=== PATIENT | male | born 1995 | race Caucasian/White ===

== ENCOUNTER 2017-01-06 13:19 | Emergency (ER) | payer SELFPAY ==
--- NOTE | 2017-01-06 13:34 | ER Document Report ---
ED Medical Screen (RME) - General Stated Complaint: FACE NUMBNESS Notes: 21 yo male c/o left facial numbness and weakness x 1 week. no fever. mild nausea. + facial weakness, equal motor strength upper and lower - Related Data Allergies/Adverse Reactions: No Known Allergies Allergy (Verified 07/25/14 23:29) Past Medical History Psychiatric Medical History: Reports: Hx Anxiety Past Surgical History: Reports: Hx Inguinal Hernia - Immunizations Hx Diphtheria, Pertussis, Tetanus Vaccination: Yes
--- NOTE | 2017-01-06 15:29 | ER Document Report ---
ED General - General Chief Complaint: Numbness of Face Stated Complaint: FACE NUMBNESS Mode of Arrival: Ambulatory Information source: Patient Notes: Patient is a 21 yo white male who no past medical history who reports 1 week history of left sided facial numbness and lack of movement. Endorses associated inability to close his left eye. He states today it felt worse because he was unable to taste his lunch. He has not tried any medication for this. He denies any fever, chills, unilateral weakness of extremities, headache, blurred vision , paresthesias, difficulty swallowing, difficulty with ambulation or slurred speech. He denies being under any stress lately. TRAVEL OUTSIDE OF THE [place] IN LAST 30 DAYS: No - Related Data Allergies/Adverse Reactions: No Known Allergies Allergy (Verified 01/06/17 13:32) Past Medical History - Social History Smoking Status: Never Smoker Chew tobacco use (# tins/day): No Frequency of alcohol use: Social Drug Abuse: Marijuana Family History: Reviewed & Not Pertinent Patient has suicidal ideation: No Patient has homicidal ideation: No Renal/ Medical History: Denies: Hx Peritoneal Dialysis Psychiatric Medical History: Reports: Hx Anxiety Past Surgical History: Reports: Hx Inguinal Hernia - Immunizations Hx Diphtheria, Pertussis, Tetanus Vaccination: Yes Review of Systems - Review of Systems Constitutional: No symptoms reported EENT: No symptoms reported Cardiovascular: No symptoms reported Respiratory: No symptoms reported Gastrointestinal: No symptoms reported Genitourinary: No symptoms reported Male Genitourinary: No symptoms reported Musculoskeletal: No symptoms reported Skin: No symptoms reported Hematologic/Lymphatic: No symptoms reported Neurological/Psychological: See HPI Physical Exam - Vital signs Vitals: Temp Pulse Resp BP Pulse Ox 97.9 F 80 16 155/65 H 98 01/06/17 13:32 01/06/17 13:32 01/06/17 13:32 01/06/17 13:32 01/06/17 13:32 Interpretation: Hypertensive - Notes Notes: PHYSICAL EXAM: CONSTITUTIONAL: Alert and oriented, well-appearing and in no acute distress. HENT: Normocephalic, atraumatic. Trachea midline. Uvula midline. Moist mucous membranes. EYES: Pupils equal round and reactive to light, EOM intact. Sclera anicteric, conjunctiva are normal. No entrapment. HEART: Regular rate and rhythm without murmurs. LUNGS: CTAB and equal. No wheezes, rales or rhonchi. EXTREMITIES: Normal range of motion, no pitting edema. No cyanosis. Cap Refill < 3 seconds. NEURO: Left side facial weakness extending from forehead to chin with slight droop, loss of forehead folds and unable to completely close eyelid. Repairer Helper strength equal and intact. Strength 5/5 in all extremities. No slurred speech, no pronator drift. PSYCH: Normal mood, normal affect. SKIN: Warm and dry. Normal turgor. No rashes or lesions noted. Course - Re-evaluation Re-evalutation: 01/06/17 15:29 Patient seen and examined. No slurred speech, no headache, no pronator drift, no unilateral extremity weakness. Exam consistent with Marquez's palsy. Based on exam and history, low suspicion for stroke and therefore will refrain from any imaging at this point. Will give course of oral steroids, eye patch for opthalmic protection and advised visine tears for lubrication. Advised patient to follow-up with primary care doctor. Given strict return precautions, discharged home in stable condition. - Vital Signs Vital signs: Temp Pulse Resp BP Pulse Ox 97.9 F 80 16 155/65 H 98 01/06/17 13:32 01/06/17 13:32 01/06/17 13:32 01/06/17 13:32 01/06/17 13:32 Discharge - Discharge Clinical Impression: Marquez's palsy Condition: Stable Disposition: HOME, SELF-CARE Instructions: Marquez's Palsy ([facility]), Steroid Medication Additional Instructions: It may take several weeks until your face is completely healed. You should continue to wear the eye patch while at home and while driving, we would recommend wearing eye protection until you can close your eyelids. To help keep your eye moist and prevent dryness, you should use visine tears. begin taking the steroid medication tomorrow as you were given today's dose here. Prescriptions: Prednisone [Deltasone 20 mg Tablet] 3 tab PO DAILY 7 Days Forms: Elevated Blood Pressure Referrals: RUT CAVANAUGH MD [Primary Care Provider] - Follow up in 1 week
[2017-01-06] MEDS ORDERED: PREDNISONE 20 MG TABLET PO ONE (15:31)
[2017-01-06 15:59] VITALS: BP 154/74
== END 2017-01-06 16:21 | disposition home or self-care (01) ==
LOC: ER 13:19
DX: G51.0 Bell's palsy (principal)
CPT/HCPCS: 99283; J7512

== ENCOUNTER 2018-08-25 22:53 | Emergency (ER) | payer SELFPAY ==
[2018-08-26] MEDS ORDERED: BUPRENORPHINE HCL 2 MG SUBLINGUAL TABLET SL ONE (00:17)
--- NOTE | 2018-08-26 00:22 | ER Document Report ---
ED General - General Chief Complaint: Possible Overdose Stated Complaint: POSSIBLE DRUG OVERDOSE Time Seen by Provider: 08/25/18 23:28 Notes: Patient is a 22-year-old male with a past medical history of polysubstance abuse who presents after family is worried that he may have accidentally overdosed on benzodiazepines and opiates. The patient states that he took Xanax , Percocet and injected heroin today. He states this was an attempt to get high. Denies any self-harm intention. Has a 3-4-year history of heroin abuse. Has had multiple overdoses in the past. The patient at no point today became apneic or lost consciousness. Family states that they want him to come to the hospital today because he was falling asleep while eating dinner. Patient states that he is interested in getting clean. He denies any acute medical concerns. He states the longest he has gone without using has been 5 months. States that prior to today he had approximately 1-2 weeks clean. Denies any current suicidal or homicidal ideation. Nothing improves or worsens his symptoms. TRAVEL OUTSIDE OF THE [place] IN LAST 30 DAYS: No - Related Data Allergies/Adverse Reactions: No Known Allergies Allergy (Verified 01/06/17 13:32) Past Medical History - General Information source: Patient - Social History Smoking Status: Former Smoker Frequency of alcohol use: None Drug Abuse: Heroin, Marijuana, Prescription drugs Lives with: Family Family History: Reviewed & Not Pertinent Patient has suicidal ideation: No Patient has homicidal ideation: No Renal/ Medical History: Denies: Hx Peritoneal Dialysis Psychiatric Medical History: Reports: Hx Anxiety, Hx Depression Past Surgical History: Reports: Hx Inguinal Hernia - Immunizations Hx Diphtheria, Pertussis, Tetanus Vaccination: Yes Review of Systems - Review of Systems Notes: Constitutional: Negative for fever. HENT: Negative for sore throat. Eyes: Negative for visual changes. Cardiovascular: Negative for chest pain. Respiratory: Negative for shortness of breath. Gastrointestinal: Negative for abdominal pain, vomiting or diarrhea. Genitourinary: Negative for dysuria. Musculoskeletal: Negative for back pain. Skin: Negative for rash. Neurological: Negative for headaches, weakness or numbness. 10 point ROS negative except as marked above and in HPI. Physical Exam - Vital signs Vitals: Temp Pulse Resp BP Pulse Ox 98.5 F 90 16 112/63 97 08/25/18 23:06 08/25/18 23:06 08/25/18 23:06 08/25/18 23:06 08/25/18 23:06 Interpretation: Normal Notes: PHYSICAL EXAMINATION: GENERAL: Well-appearing, well-nourished and in no acute distress. HEAD: Atraumatic, normocephalic. EYES: Pupils equal round and reactive to light, extraocular movements intact, sclera anicteric, conjunctiva are normal. ENT: nares patent, oropharynx clear without exudates. Moderately dry mucous membranes. NECK: Normal range of motion, supple without lymphadenopathy LUNGS: Breath sounds clear to auscultation bilaterally and equal. No wheezes rales or rhonchi. HEART: Regular rate and rhythm without murmurs ABDOMEN: Soft, nontender, normoactive bowel sounds. No guarding, no rebound. No masses appreciated. EXTREMITIES: Normal range of motion, no pitting or edema. No cyanosis. NEUROLOGICAL: No focal neurological deficits. Moves all extremities spontaneously and on command. PSYCH: Minimally lethargic, oriented, responds appropriately to questions SKIN: Warm, Dry, normal turgor, no rashes or lesions noted. Course - Re-evaluation Re-evalutation: 08/26/18 00:21 Patient presents after an acute opiate overdose, although did not require opiate reversal with naloxone. Patient presents nontoxic in appearance, in no distress, admits to ongoing opiate abuse. I had an extensive conversation with the patient about the dangers opiate abuse, have emphasized that they are never going to be certain what they are self administering particularly given the high rates of fentanyl in our community. Rehab resources have been offered. No indication for labs or imaging. Patient has been sent home with a 2-day supply of Suboxone. It has been given to the custody of a member at the bedside to be administered to the patient. Patient has remained awake, alert, oriented without any evidence of somnolence, hypoventilation or bradycardia to suggest ongoing opiate intoxication that would warrant further observation. At this time will discharge with return precautions and follow-up recommendations. Verbal discharge instructions given a the bedside and opportunity for questions given. Medication warnings reviewed. Patient is in agreement with this plan and has verbalized understanding of return precautions and the need for primary care follow-up in the next 24-72 hours. - Vital Signs Vital signs: Temp Pulse Resp BP Pulse Ox 98.2 F 85 16 128/59 H 100 08/26/18 00:51 08/26/18 00:51 08/26/18 00:51 08/26/18 00:51 08/26/18 00:51 Discharge - Discharge Clinical Impression: Benzodiazepine abuse Opiate overdose Qualifiers: Encounter type: initial encounter Injury intent: accidental or unintentional Qualified Code(s): T40.601A - Poisoning by unspecified narcotics, accidental ( unintentional), initial encounter Condition: Stable Disposition: HOME, SELF-CARE Additional Instructions: You were seen today for heroin overdose. Please never use opiates of any kind. Over 200 people every day in the [place] from opiate overdoses. Do not become a statistic. You should urgently seek rehab or a similar resource. You can call 3-453-569-[facility] to find local resources. Return if you have any symptoms that are concerning to you including difficulty breathing, fever, persistent vomiting, or any other symptoms that are concerning to you. Tomorrow, in the afternoon take 8 mg of Suboxone. The following day again at approximately 4:56 PM take the remainder of the Suboxone that you have been sent home with, 16 mg. Please be advised that if you been using opiates and take Suboxone it will put you into withdrawal. If you use any other narcotic while on Suboxone it will have no effect. Please contact the listed resources to get into a Suboxone clinic at your earliest ability. Please be reminded that opiate abuse and use is a terminal condition and will inevitably result in an overdose and . Referrals: RUT CAVANAUGH MD [Primary Care Provider] - Follow up as needed
[2018-08-26 01:25] VITALS: BP 128/59
== END 2018-08-26 00:55 | disposition home or self-care (01) ==
LOC: ER 22:53
DX: T40.601A Poisoning by unspecified narcotics, accidental (unintentional), initial encounter (principal); F13.10 Sedative, hypnotic or anxiolytic abuse, uncomplicated
CPT/HCPCS: 99284; J0571